=== PATIENT | female | born 1965 ===

== ENCOUNTER 2023-01-25 15:42 | Outpatient (REF) | payer SELFPAY ==
[2023-01-25 17:32] LABS: Bacteria Rare HPF (Negative); Epithelial Cells Rare HPF (Negative)
[2023-01-25 17:33] LABS: Crystals Negative HPF (Negative); Mucus Trace (Negative)
[2023-01-25 17:34] LABS: C & S Indicated? C&S Done As Ordered; Casts 0-2 Coarse Granular LPF (Negative)
[2023-01-27 16:01] LABS: Chlamydia Result Negative (Negative); GC Result Negative (Negative)
== END 2023-01-25 15:43 | disposition home or self-care (01) ==
LOC: LBN 15:42
PROVIDERS: Visit Provider Physician Assistant Medical
DX: R30.9 Painful micturition, unspecified (principal)
CPT/HCPCS: 87491; 87591; 81015; 87086; 87480; 87510; 87660

== ENCOUNTER 2023-04-11 20:02 | Outpatient (REF) | payer SELFPAY ==
[2023-04-11 20:37] LABS: Source Nasal/Nares
[2023-04-11 21:41] LABS: COVID-19 PCR Negative (Negative)
== END 2023-04-11 20:03 | disposition home or self-care (01) ==
LOC: LBN 20:02
PROVIDERS: Visit Provider Physician Assistant Medical
DX: J02.9 Acute pharyngitis, unspecified (principal); Z20.822 Contact with and (suspected) exposure to COVID-19
CPT/HCPCS: 87635; 87070